=== PATIENT | male | born 1945 | race Caucasian/White ===

== ENCOUNTER 2017-03-04 13:19 | Inpatient (IN) | payer MEDICARE ==
[~2017-03-04] VITALS: Ht 167.6 cm; Wt 66.7 kg
[2017-03-04] MEDS ORDERED: MECLIZINE HCL 25 MG TABLET ONE (13:28)
[2017-03-04] MEDS ORDERED: IV NS 0.9% 1,000 ML BAG IV ONE ×2 (13:30→15:00)
[2017-03-04] MEDS ORDERED: MECLIZINE HCL 12.5 MG TABLET PO ONE (13:30)
[2017-03-04] MEDS ORDERED: ACETAMINOPHEN ES 500 MG TABLET ONE (13:37)
[2017-03-04 13:40] LABS: HEMOGLOBIN 10.8 g/dL (13.5-17.5); MEAN CORPUSCULAR HEMOGLOBIN 31 PG (26.0-33.0)
[2017-03-04 13:44] LABS: BASOPHILS % (AUTO) 0.3 % (0.0-2.0); HEMATOCRIT 31 % (39-51); LYMPHOCYTES # (AUTO) 1.1 /CMM (0.8-4.8); LYMPHOCYTES % (AUTO) 13.4 % (20.0-44.0); MEAN CORPUSCULAR HGB CONC 34 g/dl (31.0-36.0); MEAN CORPUSCULAR VOLUME 90 fL (80-96); MONOCYTES # (AUTO) 0.8 /CMM (0.1-1.30); MONOCYTES % (AUTO) 9.4 % (2.0-12.0); NEUTROPHILS # (AUTO) 6.2 /CMM (1.8-8.9); NEUTROPHILS % (AUTO) 76.9 % (43.0-81.0); PLATELET COUNT (AUTO) 194 /CMM (150-450); RDW COEFFICIENT OF VARIATION 12.6 (11.5-15.0); WHITE BLOOD COUNT (AUTO) 8.1 K/uL (4.3-11.0)
--- NOTE | 2017-03-04 13:48 | NUR ---
Note zakia in EDM - 03/04/17 at 1350 by KARIE PT REC'D TO ER VIA EMS PT FOUND AT HOME BY SON SOB AND CHEST PAIN IV STARTED 18G RT AC LABS DRAWN SENT TO LAB .AWAITING EVALUATION BY ER PROVIDER.
[2017-03-04 13:50] LABS: CALCIUM, SERUM 9.1 mg/dL (8.5-10.1); CREATININE 1.5 mg/dL (0.6-1.3); POTASSIUM 3.7 mmol/L (3.5-5.1)
--- NOTE | 2017-03-04 13:50 | NUR ---
PT REC'D TO ER C/O DIZZNESS FOR 2 DAYS . HIV POS IV STARTED 20 RT FA LABS AND CULTURES DONE SENT TO LAB MEDS GIVEN PER TEMP 102/0 ORALAWAITING EVALUATION BY ER PROVIDER.
[2017-03-04 13:54] LABS: INR 0.94 (0.87-1.13); PROTHROMBIN TIME 9.8 SECS (9.5-12.7)
[2017-03-04 13:56] LABS: ALBUMIN 3.6 g/dL (3.4-5.0); BILIRUBIN,DIRECT 0.1 mg/dL (0.0-0.2); BILIRUBIN,TOTAL 0.3 mg/dL (0.2-1.0); TOTAL PROTEIN, SERUM 7.4 g/dL (6.4-8.2)
[2017-03-04 13:58] LABS: TROPONIN I 0.082 ng/mL (0.00-0.056)
[2017-03-04] MEDS ORDERED: ACETAMINOPHEN ES 500 MG TABLET PO ONE (14:00)
--- NOTE | 2017-03-04 14:01 | NUR ---
CHEST XRAY DONE
--- NOTE | 2017-03-04 14:20 | NUR ---
PT SENT TO CT
--- NOTE | 2017-03-04 14:45 | NUR ---
BACK FROM CT TEMP 98.4 ORAL
[2017-03-04] MEDS ORDERED: IV NS 0.9% 500 ML BAG IV ONE (15:00)
[2017-03-04] MEDS ORDERED: CEFEPIME 1 GM in IV D5W 50 ML IV ONE (15:00)
[2017-03-04] MEDS ORDERED: VANCOMYCIN 1 GM in IV D5W 250 ML IV ONE (15:00)
[2017-03-04] MEDS ORDERED: OSELTAMIVIR PHOSPHATE 75 MG CAPSULE PO ONE (15:00)
[2017-03-04] MEDS ORDERED: ASPIRIN 325 MG TABLET PO ONE (15:30)
[2017-03-04] MEDS ORDERED: ASPIRIN 325 MG TABLET ONE (15:55)
[2017-03-04] MEDS ORDERED: OSELTAMIVIR PHOSPHATE 75 MG CAPSULE ONE (15:56)
[2017-03-04] MEDS ORDERED: Z GUARD REMEDY 2 OZ OINT TP PRN (17:30)
[2017-03-04] MEDS ORDERED: ONDANSETRON HCL/PF 4 MG/2 ML VIAL IVP PRN (17:30)
[2017-03-04] MEDS ORDERED: MAGNESIUM HYDROXIDE 30 ML UDC PO PRN (17:30)
[2017-03-04] MEDS ORDERED: HYDROCODONE/APAP 5/325MG 1 EACH TABLET PO PRN (17:30)
[2017-03-04] MEDS ORDERED: MAG HYDROX/AL HYDROX/SIMETH 30 ML UDC PO PRN (17:30)
[2017-03-04] MEDS ORDERED: ACETAMINOPHEN 325 MG TABLET PO PRN (17:30)
[2017-03-04] MEDS ORDERED: [UNRECOGNIZED DRUG - OTHER] MC ONE (17:36)
--- NOTE | 2017-03-04 18:41 | NUR ---
PT AMB ROOM NO C/O DIZZNESS AT THIS TIME AWAITING EVALUATION BY ER PROVIDER.
[2017-03-04 20:00] VITALS: BP 132/67
--- NOTE | 2017-03-04 20:44 | NUR ---
PT MOVED FROM BED 6 TO BED 14. PT PLACED ON MONITOR. PT RESTING COMFORTABLY. ZOSYN STARTED. PT ASSIGNED A ROOM - 325-1
[2017-03-04] MEDS: PIPERACILLIN /TAZOBACTAM 3.375 G in IV D5W 50 ML IV SCH ×2 (20:46→23:43)
[2017-03-04] MEDS ORDERED: NITROGLYCERIN 0.4 MG/TAB BOTTLE SL PRN (21:00)
[2017-03-04] MEDS ORDERED: PIPERACILLIN /TAZOBACTAM 4.5 G in IV D5W 50 ML IV SCH (21:00)
--- NOTE | 2017-03-04 21:13 | NUR ---
REPORT GIVEN TO LOUIS. PREPARING PT FOR TRANSFER TO FLOOR
--- NOTE | 2017-03-04 21:25 | NUR ---
HALVER MACHINE OPERATOR NOTES PT ARRIVED ON TO THE UNIT VIA GURNEY AT 2124. NO COMPLAINTS OF PAIN OR DISTRESS. PT IS HIV POSITIVE. PT HAS SCRATCH ON RIGHT AND LEFT LEG, RIGHT EAR, AND ACROSS ABD, PT STATED THAT HE FELL AT HOME WOUNDS ARE DOCUMENT AND PICTURES ARE IN CHART. PT HAS A RIGHT FOREARM IV, INTACT AND PATENT. PT TELE MONITORED NORMAL SINUS RHYTHM WITH BBB. ALL PT BELONGINGS HAS BEEN ACCOUNTED FOR. ORIENTED PT TO USE OF CALL LIGHT. SAFETY PRECAUTIONS IN PLACE, BED IN LOW LOCKED POSITION, 2XSIDERAILS UP AND CALL LIGHT WITHIN REACH. WILL CONTINUE TO MONITOR.
[2017-03-04] MEDS: IV NS 0.9% 1,000 ML IV PRN (22:28)
[2017-03-04] MEDS: ASPIRIN 81 MG TAB.CHEW PO SCH (23:43)
[2017-03-05] VITALS: BP 112/50
[2017-03-05 04:00] VITALS: BP 124/64
[2017-03-05] MEDS: PIPERACILLIN /TAZOBACTAM 3.375 G in IV D5W 50 ML IV SCH ×3 (05:41→16:58)
--- NOTE | 2017-03-05 07:30 | NUR ---
MS RN OPENING NOTES RECEIVED PATIENT IN STABLE CONDITION IN NO APPARENT DISTRESS. PATIENT IS RESTING IN BED. BEDSIDE RAILS ARE UP X 2. BED IS LOCKED AND LOWERED. WILL CONTINUE TO MONITOR.
--- NOTE | 2017-03-05 07:35 | NUR ---
RN CLOSING NOTES PT RESTING IN BED. NO COMPLAINTS OR PAIN, SOB, OR DISTRESS. PT HAS A RIGHT FOREARM IV RUNNING NS. PT TOLERATING FLUIDS WELL. PT TELE MONITORED NORMAL SINUS RHYTHM WITH BBB RATE OF 70S. SAFETY PRECAUTIONS IN PLACE, BED IN LOW LOCKED POSITION, 2XSIDERAILS UP AND CALL LIGHT WITHIN REACH. WILL ENDORSE TO DAY SHIFT NURSE FOR CONTINUITY OF CARE.
[2017-03-05 08:00] VITALS: BP 125/57
[2017-03-05 08:20] LABS: BASOPHILS % (AUTO) 0.2 % (0.0-2.0); EOSINOPHILS % (AUTO) 0.4 % (0.0-6.0); HEMATOCRIT 26 % (39-51); HEMOGLOBIN 8.6 g/dL (13.5-17.5); LYMPHOCYTES # (AUTO) 1.6 /CMM (0.8-4.8); MEAN CORPUSCULAR HEMOGLOBIN 30 PG (26.0-33.0); MEAN CORPUSCULAR HGB CONC 34 g/dl (31.0-36.0); MEAN CORPUSCULAR VOLUME 90 fL (80-96); MONOCYTES # (AUTO) 0.6 /CMM (0.1-1.30); NEUTROPHILS # (AUTO) 3.6 /CMM (1.8-8.9); NEUTROPHILS % (AUTO) 62.4 % (43.0-81.0); PLATELET COUNT (AUTO) 147 /CMM (150-450); RDW COEFFICIENT OF VARIATION 13.5 (11.5-15.0); RED BLOOD CELL COUNT(AUTO) 2.83 MIL/uL (4.5-6.0); WHITE BLOOD COUNT (AUTO) 5.8 K/uL (4.3-11.0)
[2017-03-05 08:47] LABS: ALBUMIN 2.6 g/dL (3.4-5.0); BILIRUBIN,TOTAL 0.3 mg/dL (0.2-1.0); CALCIUM, SERUM 8.2 mg/dL (8.5-10.1); MAGNESIUM 1.7 mg/dL (1.8-2.4); PHOSPHORUS 2.3 mg/dL (2.5-4.9); POTASSIUM 3.5 mmol/L (3.5-5.1); TOTAL PROTEIN, SERUM 5.8 g/dL (6.4-8.2)
[2017-03-05] MEDS ORDERED: ESOM40CA PO (09:24)
[2017-03-05] MEDS ORDERED: LORA1TAB PO (09:24)
[2017-03-05] MEDS ORDERED: LISI10TA5 PO (09:24)
[2017-03-05] MEDS ORDERED: ESCI10TA PO (09:24)
[2017-03-05] MEDS ORDERED: ACYC400T PO (09:24)
[2017-03-05] MEDS ORDERED: TEMA30CA PO (09:24)
[2017-03-05] MEDS ORDERED: ATOR40TA PO (09:24)
[2017-03-05] MEDS ORDERED: DARU600T2 PO (09:24)
[2017-03-05] MEDS ORDERED: RITO100T PO (09:24)
[2017-03-05] MEDS ORDERED: RALT400T PO (09:24)
[2017-03-05] MEDS ORDERED: FENO135C PO (09:24)
[2017-03-05] MEDS ORDERED: BUPR150T5 PO (09:24)
[2017-03-05] MEDS ORDERED: [UNRECOGNIZED DRUG - CODE] PO (09:24)
[2017-03-05] MEDS ORDERED: TAMS0.4C34 PO (09:24)
[2017-03-05] MEDS: OSELTAMIVIR PHOSPHATE 75 MG CAPSULE PO SCH ×2 (09:41→16:40)
[2017-03-05] MEDS: ASPIRIN 81 MG TAB.CHEW PO SCH (09:41)
[2017-03-05] MEDS ORDERED: VANCOMYCIN 1 GM in IV D5W 250 ML IV SCH (10:00)
[2017-03-05] MEDS: Magnesium 1GM/D5W 100ML PREMIX 100 ML IV SCH ×2 (11:13→12:31)
[2017-03-05] MEDS ORDERED: K PHOS NEUTRAL 250 MG TABLET PO ONE (13:00)
[2017-03-05 16:00] VITALS: BP 122/51
--- NOTE | 2017-03-05 19:30 | NUR ---
MS RN OPENING NOTES: RECEIVED PT AWAKE AND IS A/OX3. NO COMPLAINTS OF PAIN, SOB, OR DISTRESS. ON ROOM AIR AND TOLERATING WELL. PT REQUESTING FOR HIS HIV MEDS. INFORMED PT THAT HE NEEDS TO BRING THE ACTUAL MEDS SINCE OUR PHARMACY CANNOT PROVIDE THEM. PT WANTS TO BE SEEN BY A DOCTOR. PT VERBALIZED THAT NOBODY SAW HIM AT ALL. PT HAS A RIGHT FOREARM IV RUNNING NS AT 75ML/HR. CALL LIGHT WITHIN PT'S REACH. BED KEPT IN LOW, LOCKED POSITION, AND SIDE RAILS X 2UP. WILL CONTINUE TO MONITOR PT.
--- NOTE | 2017-03-05 19:30 | NUR ---
MS RN CLOSING NOTES PATIENT IS RESTING IN BED. BEDSIDE RAILS ARE UP X 2. BED IS LOCKED AND LOWERED. WILL ENDORSE CARE TO TECHNICIAN BIOLOGICAL HEALTH NURSE FOR MARGARITA.
[2017-03-05 20:47] VITALS: BP 142/61
--- NOTE | 2017-03-05 21:00 | NUR ---
MS RN NOTES: SPOKE WITH DR. DELCID AND GOT ORDER FOR ATIVAN 0.5MG PO Q8HRN PRN.
[2017-03-05] MEDS: LORAZEPAM 0.5 MG TABLET PO PRN (21:31)
--- NOTE | 2017-03-05 22:25 | NUR ---
MS RN NOTES: DR. DELCID ON FLOOR. INFORMED HIM THAT PT WANTS NEXIUM. DR. DELCID ORDERED PROTONIX 40MG PO DAILY.
[2017-03-05] MEDS: VANCOMYCIN 1 GM in IV D5W 250 ML IV SCH (23:50)
[2017-03-05] MEDS: IV NS 0.9% 1,000 ML IV PRN (23:55)
[2017-03-05] MEDS: ZOLPIDEM TARTRATE 5 MG TABLET PO PRN (23:59)
[2017-03-06] MEDS: PIPERACILLIN /TAZOBACTAM 3.375 G in IV D5W 50 ML IV SCH ×5 (01:08→23:52)
--- NOTE | 2017-03-06 07:25 | NUR ---
MS RN CLOSING NOTES: ALL NEEDS WERE ATTENDED AND ANTICIPATED FOR. PT RESTING IN BED AT THIS TIME. NO COMPLAINTS OR PAIN, SOB, OR DISTRESS. ON ROOM AIR AND TOLERATING WELL. PT HAS A RIGHT FOREARM IV RUNNING NS AT 75ML/HR. CALL LIGHT WITHIN PT'S REACH. BED KEPT IN LOW, LOCKED POSITION, AND SIDE RAILS X 2UP. ENDORSED TO AM NURSE FOR MARGARITA.
[2017-03-06 08:00] VITALS: BP 109/44
--- NOTE | 2017-03-06 09:00 | NUR ---
RN NOTES PT. C/O DIARRHEA PREVIOUSLY. STOOL WAS COLLECTED AND SENT TO LAB. MD WAS NOTIFIED, AND LAB ORDERS GIVEN TO TEST FOR C-DIFF, WBC COUNT, AND OVA PARASITE.
[2017-03-06 09:34] LABS: CALCIUM, SERUM 8.5 mg/dL (8.5-10.1); CREATININE 0.9 mg/dL (0.6-1.3); PHOSPHORUS 2.6 mg/dL (2.5-4.9); POTASSIUM 3.2 mmol/L (3.5-5.1)
--- NOTE | 2017-03-06 09:50 | NUR ---
RN OPENING NOTES RECEIVED PT. IN BED A&OX4. BREATHING UNLABORED, AND EVENLY ROOM AIR. NO S/S OF ACUTE DISTRESS. IV ACCESS ON RIGHT FOREARM INTACT AND PATENT. BED IS IN LOWEST, AND LOCKED POSITION. 2 SIDE RAILS UP, AND INSTRUCTED PT. TO USE CALL LIGHT FOR ASSISTANCE. ALL NEEDS MET. WILL CONTINUE TO ASSESS AND MONITOR.
[2017-03-06] MEDS: VANCOMYCIN 1 GM in IV D5W 250 ML IV SCH ×2 (10:00→12:07)
--- NOTE | 2017-03-06 10:00 | NUR ---
RN NOTES PT.'S VANCO TROUGH IS LOW. PER PHARMACY OKAY TO GIVE VANCOMYCIN IV.
[2017-03-06] MEDS ORDERED: buPROPion SR 150 MG TABLET.ER PO SCH (11:30)
[2017-03-06] MEDS ORDERED: buPROPion 100 MG TABLET PO SCH (11:30)
[2017-03-06] MEDS ORDERED: LORAZEPAM 1 MG TABLET PO ONE (11:30)
[2017-03-06] MEDS: OSELTAMIVIR PHOSPHATE 75 MG CAPSULE PO SCH ×2 (11:39→17:26)
[2017-03-06] MEDS: POTASSIUM CHLORIDE 20 MEQ TAB.PRT.SR PO SCH ×3 (11:39→14:09)
[2017-03-06] MEDS: ASPIRIN 81 MG TAB.CHEW PO SCH (11:39)
[2017-03-06 16:00] VITALS: BP 132/57
--- NOTE | 2017-03-06 16:00 | NUR ---
RN NOTES PT. WS AMBULATING WITH A STEADY GAIT AROUND UNIT FOR APPROX. 10 MIN. PT. TOLERATED WELL.
[2017-03-06] MEDS: buPROPion SR 150 MG TABLET.ER PO SCH (17:26)
--- NOTE | 2017-03-06 19:50 | NUR ---
RN CLOSING NOTES PT. IN BED A&OX4. BREATHING UNLABORED, AND EVENLY ROOM AIR. NO S/S OF ACUTE DISTRESS. IV ACCESS ON RIGHT FOREARM RUNNING IV FLUIDS. BED IS IN LOWEST, AND LOCKED POSITION. 2 SIDE RAILS UP, AND INSTRUCTED PT. TO USE CALL LIGHT FOR ASSISTANCE. ALL NEEDS MET. WILL ENDORSE REPORT TO NURSE.
[2017-03-06] MEDS: LORAZEPAM 0.5 MG TABLET PO PRN (21:16)
[2017-03-06] MEDS: ZOLPIDEM TARTRATE 5 MG TABLET PO PRN (21:52)
[2017-03-06 22:00] VITALS: BP 132/57
[2017-03-07] MEDS: VANCOMYCIN 1 GM in IV D5W 250 ML IV SCH (00:23)
[2017-03-07] MEDS: PIPERACILLIN /TAZOBACTAM 3.375 G in IV D5W 50 ML IV SCH (06:07)
--- NOTE | 2017-03-07 06:32 | NUR ---
MS RN NOTE PATIENT STABLE. ALL NEEDS MET AND ATTENDED TO. WILL ENDORSE TO DAY SHIFT FOR MARGARITA.
[2017-03-07 08:00] VITALS: BP 149/56
--- NOTE | 2017-03-07 08:00 | NUR ---
MS RN OPENING NOTES PATIENT IN COMFORTABLY IN BED, AWAKE , ALERT ORIENTED.VERBALLY RESPONSIVE. DENIED ANY PAIN. NO SOB NOTED. NO SIGN OF ACUTE DISTRESS NOTED. BREATHING REGULAR AND UNLABORED, IV ACCES PATENT AND INTACT. NO REDNESS, NO S/SX OF INFILTRATION NOTED. SAFETY MEASURES IN PLACE. WILL CONTINUE TO MONITOR ACCORDINGLY.
[2017-03-07] MEDS: ASPIRIN 81 MG TAB.CHEW PO SCH (09:09)
[2017-03-07] MEDS: buPROPion SR 150 MG TABLET.ER PO SCH (09:09)
[2017-03-07] MEDS: OSELTAMIVIR PHOSPHATE 75 MG CAPSULE PO SCH (09:09)
[2017-03-07 10:08] LABS: CALCIUM, SERUM 8.5 mg/dL (8.5-10.1); CREATININE 0.9 mg/dL (0.6-1.3); POTASSIUM 3.7 mmol/L (3.5-5.1)
--- NOTE | 2017-03-07 11:53 | NUR ---
DISCHARGE INSTRUCTIONS AND TEACHING GIVEN TO THE PT.IV H/L TO RFA REMOVED WITHOUT BLEEDING NOTED.DISCHARGED HOME WITH STABLE V/S VIA PRIVATE CAR ACCOMPANIED BY HIS GIRLFRIEND.
== END 2017-03-07 11:50 | disposition home or self-care (01) | DRG 871 ==
LOC: ER 13:21 → MED 16:48 → UNDOADMIN 16:48 → TRANSITION 16:48 → TELE 03-05 07:07 → MED 03-05 10:04
PROVIDERS: ADMIT Internal Medicine; ATTEND Internal Medicine
DX: A41.9 Sepsis, unspecified organism (principal); J15.9 Unspecified bacterial pneumonia; N17.0 Acute kidney failure with tubular necrosis; I21.A1 Myocardial infarction type 2; J10.00 Influenza due to other identified influenza virus with unspecified type of pneumonia; E83.42 Hypomagnesemia; J10.1 Influenza due to other identified influenza virus with other respiratory manifestations; E87.6 Hypokalemia; D64.9 Anemia, unspecified
CPT/HCPCS: 36415; 70450-TC; 71045-TC; 80048-TC; 80053-TC; 80061-TC; 80076-TC; 80202-TC; 83605-TC; 83735-TC; 84100-TC; 84484-TC; 85025-TC; 85730-TC; 87040-TC; 87070-TC; 87081-TC; 87177; 87209; 87400; A4606; J0692; J2405; J2543; J3370; J3475; J7030; J7040; J7060; J8597; Z7610

== ENCOUNTER 2017-05-07 14:37 | Emergency (ER) | payer MEDICARE ==
[~2017-05-07] VITALS: Ht 167.6 cm; Wt 68.0 kg
[~2017-05-07 14:37] MED LIST: ACYC400T PO; ATOR40TA PO; BUPR150T5 PO; DARU600T2 PO; ESCI10TA PO; ESOM40CA PO; FENO135C PO; LISI10TA5 PO; LORA1TAB PO; RALT400T PO; RITO100T PO; TAMS0.4C34 PO; TEMA30CA PO; [UNRECOGNIZED DRUG - CODE] PO
[2017-05-07] MEDS ORDERED: LIDOCAINE 0.5% HCL 50 ML VIAL IJ ONE (15:30)
[2017-05-07] MEDS ORDERED: HYDROCODONE/APAP 5/325MG 1 EACH TABLET PO ONE (17:30)
[2017-05-07] MEDS ORDERED: ONDANSETRON 4 MG TAB.RAPDIS PO ONE (17:30)
[2017-05-07] MEDS ORDERED: HYDROCODONE/APAP 5/325MG 1 EACH TABLET ONE (17:31)
[2017-05-07] MEDS ORDERED: ONDANSETRON 4 MG TAB.RAPDIS ONE (17:31)
[2017-05-07 17:50] VITALS: BP 111/75
[2017-05-07] MEDS ORDERED: ACETAMINOPHEN ES 500 MG TABLET PO ONE (18:00)
== END 2017-05-07 17:52 | disposition home or self-care (01) ==
LOC: ER 14:40
DX: S01.511A Laceration without foreign body of lip, initial encounter (principal); I10 Essential (primary) hypertension; E78.00 Pure hypercholesterolemia, unspecified; W01.0XXA Fall on same level from slipping, tripping and stumbling without subsequent striking against object, initial encounter; Y93.89 Activity, other specified; Y92.89 Other specified places as the place of occurrence of the external cause; Y99.8 Other external cause status
CPT/HCPCS: 70450-TC; 70486-TC; A4606; A6402; Q0162; Z7610

== ENCOUNTER 2017-05-12 12:40 | Emergency (ER) | payer MEDICARE ==
[~2017-05-12] VITALS: Ht 167.6 cm; Wt 68.0 kg
[2017-05-12 12:43] VITALS: BP 126/70
== END 2017-05-12 15:37 | disposition home or self-care (01) ==
LOC: ER 12:41
DX: S01.511D Laceration without foreign body of lip, subsequent encounter (principal); E78.00 Pure hypercholesterolemia, unspecified; F32.9 Major depressive disorder, single episode, unspecified; I10 Essential (primary) hypertension; W18.30XD Fall on same level, unspecified, subsequent encounter; Y93.89 Activity, other specified; Y92.89 Other specified places as the place of occurrence of the external cause; Y99.8 Other external cause status
CPT/HCPCS: A4606; Z7502; Z7610